=== PATIENT | female | born 1975 | race Caucasian/White ===

== ENCOUNTER 2018-12-14 13:42 | Emergency (ER) | payer MEDICAID ==
[~2018-12-14] VITALS: Ht 165.1 cm; Wt 86.4 kg
[2018-12-14 13:49] VITALS: Ht 165.1 cm; Wt 86.4 kg
[2018-12-14] MEDS ORDERED: LIORESAL 10 MG10 MG PO (13:51)
[2018-12-14] MEDS ORDERED: NEURONTIN600 MG PO (13:51)
[2018-12-14] MEDS ORDERED: BUPROPION HCL100 MG PO ×2 (13:52)
[2018-12-14] MEDS ORDERED: CELEXA20 MG PO (13:53)
[2018-12-14] MEDS ORDERED: TRAZODONE HCL150 MG PO (13:53)
[2018-12-14 14:30] LABS: APPEARANCE CLEAR (CLEAR); BILIRUBIN NEGATIVE (NEGATIVE); COLOR STRAW (YELLOW); GLUCOSE NEGATIVE (NEGATIVE); KETONE NEGATIVE (NEGATIVE); NITRITE NEGATIVE (NEGATIVE); PROTEIN NEGATIVE (NEGATIVE); SPECIFIC GRAVITY 1.005 (1.005-1.020); UROBILINOGEN NORMAL (NORMAL)
[2018-12-14 14:38] LABS: HCG URINE NEGATIVE (NEGATIVE)
[2018-12-14 14:44] LABS: BASOPHILS 0.4 % (0-2); HEMATOCRIT 36.9 % (36.0-48.0); HEMOGLOBIN 12.5 g/dL (12-16); IMMATURE GRANULOCYTES 0.2 % (0-5); LYMPHOCYTES 33.7 % (15-50); MCHC 33.9 g/dL (31.0-37.0); MCV 100.3 fL (80.0-100.0); MEAN PLATELET VOLUME 9.5 fL (7.4-10.4); MONOCYTES 9.7 % (2-11); PLATELET COUNT 246 10x3/uL (130-400); RBC 3.68 10x6/uL (4.00-5.40); RDW 12.8 % (11.5-14.5); WBC 8.1 10x3/uL (4.8-10.8)
[2018-12-14 15:02] LABS: ALBUMIN 3.9 g/dL (3.4-5.0); ALKALINE PHOSPHATASE 64 U/L (46-116); ALT (SGPT) 16 U/L (10-68); BILIRUBIN - TOTAL 0.32 mg/dL (0.2-1.3); CALC OSMOLALITY 275 mosm/kg (275-300); CALCIUM 8.7 mg/dL (8.5-10.1); CARBON DIOXIDE 26.3 mmol/L (21.0-32.0); CHLORIDE - SERUM 103 mmol/L (98-107); CREATININE - SERUM 0.7 mg/dL (0.6-1.3); GLUCOSE 92 mg/dL (74-106); POTASSIUM - SERUM 4.1 mmol/L (3.5-5.1); PROTEIN - SERUM 6.6 g/dL (6.4-8.2); SODIUM 138 mmol/L (136-145); UREA NITROGEN 13 mg/dL (7-18); eGFR NON AFRICAN AMERICAN > 90 mL/min (90-120)
[2018-12-14 15:05] LABS: TROPONIN-I < 0.017 ng/mL (0.000-0.060)
[2018-12-14] MEDS ORDERED: CYCLOBENZAPRINE10 MG PO (16:22)
[2018-12-14] MEDS ORDERED: ACETAMINOPHEN500 M1 PO (16:22)
[2018-12-14] MEDS ORDERED: IBUPROFEN800 MG PO (16:22)
[2018-12-14 17:42] VITALS: BP 111/77
== END 2018-12-14 17:08 | disposition home or self-care (01) ==
LOC: D.ER 13:42
PROVIDERS: Family Medicine
DX: M54.5 Low back pain (principal)